=== PATIENT | female | born 1955 | race Two or more races ===

== ENCOUNTER 2022-12-02 21:46 | Emergency (ER) | payer MEDICARE, OTHER ==
[~2022-12-02] VITALS: Ht 172.7 cm; Wt 61.2 kg
[2022-12-03] MEDS ORDERED: ONDANSETRON ODT 4 MG TAB PO ONE (00:30)
[2022-12-03] MEDS ORDERED: HYDROcodone-ACET 5/325MG TAB PO ONE (00:30)
[2022-12-03] MEDS ORDERED: ACET-1079 PO (00:39)
[2022-12-03] MEDS ORDERED: BACL5TAB2 PO (00:39)
[2022-12-03] MEDS ORDERED: ONDA-144 PO (00:39)
[2022-12-03 00:48] VITALS: BP 145/94
== END 2022-12-03 00:53 | disposition home or self-care (01) ==
LOC: ER 21:46
DX: S13.4XXA Sprain of ligaments of cervical spine, initial encounter (principal); S00.03XA Contusion of scalp, initial encounter; Y08.89XA Assault by other specified means, initial encounter; Y93.89 Activity, other specified; Y92.89 Other specified places as the place of occurrence of the external cause; Y99.8 Other external cause status
CPT/HCPCS: 70450; 72125; 99284; Q0162